=== PATIENT | female | born 1945 | race Caucasian/White ===

== ENCOUNTER → 2016-10-27 | Outpatient (CLI) | payer MEDICARE, BC ==
[~2016-10-27] MED LIST: AMIO200T2 PO; CALC667C10 PO; CEPH-583 PO; CEPH500T PO; CINA90TA PO; CLIN300C86 PO; FOLI0.8T5 PO; GABA-215 PO; GABA-336 PO; LACT1CAP79 PO; LUTE20CA3 PO; MIDO10TA PO; MIRT7.5T11 PO; OMEP20TA24 PO; OXYC-532 PO; OXYC1TAB66 PO; ROPI2TAB6 PO; SERT50TA PO; SULF1TAB42 PO; WARF1TAB6 PO
[2016-10-27 12:50] LABS: BASOPHILS % (AUTO) 0.5 % (0-2); EOSINOPHILS # (AUTO) 0.2 T/MM3 (0-0.5); EOSINOPHILS % (AUTO) 2.6 % (0-4); HCT - HEMATOCRIT 42.7 % (36-46); HGB - HEMOGLOBIN 12.8 GM/DL (12-16); IMMATURE GRANULOCYTE # (AUTO) 0.01 T/MM3 (0.00-0.03); IMMATURE GRANULOCYTE % (AUTO) 0.2 % (0.0-0.5); LYMPHOCYTES # (AUTO) 1.2 T/MM3 (1-4.8); LYMPHOCYTES % (AUTO) 21.3 % (23-45); MEAN CORPUSCULAR VOLUME 86.6 UM3 (80-100); MEAN PLATELET VOLUME 10.1 UM3 (9.4-12.4); MONOCYTES # (AUTO) 0.5 T/MM3 (0-0.8); MONOCYTES % (AUTO) 8.8 % (0-9.0); NEUTROPHILS #(AUTO)-ABSOLUTE 3.8 T/MM3 (1.8-7.7); NEUTROPHILS % (AUTO) 66.6 % (33-66); RED BLOOD COUNT 4.93 M/MM3 (4.00-5.20); WBC - WHITE BLOOD COUNT 5.7 T/MM3 (4.5-11.0)
[2016-10-27 12:57] LABS: ALBUMIN 3.8 G/DL (3.5-5.0); ALBUMIN/GLOBULIN RATIO 1.2 RATIO (1.1-2.2); ALKALINE PHOSPHATASE 215 U/L (38-126); ALT (SGPT) 30 U/L (9-52); ANION GAP 19 MEQ/L (5-15); AST (SGOT) 31 U/L (14-36); BUN/CREATININE RATIO 6 RATIO (6-26); C-REACTIVE PROTEIN 13.6 MG/L (0-9); CALCIUM 8.1 MG/DL (8.4-10.2); CHLORIDE 105 MEQ/L (98-107); CO2 - CARBON DIOXIDE 21 MEQ/L (22-30); CREATININE 5.3 MG/DL (0.7-1.2); GLOMERULAR FILTRATION RATE 8; GLUCOSE 122 MG/DL (65-110); POTASSIUM 4.6 MEQ/L (3.6-5); SODIUM 145 MEQ/L (134-144); TOTAL PROTEIN 6.9 G/DL (6.3-8.2)
== END ==
LOC: LABN 12:42
PROVIDERS: ATTEND Internal Medicine Infectious Disease
DX: M86.671 Other chronic osteomyelitis, right ankle and foot (principal)
CPT/HCPCS: 80053; 85025; 85652; 86140

== ENCOUNTER → 2016-12-08 | Outpatient (CLI) | payer MEDICARE, BC ==
[2016-12-08 07:53] LABS: INR 4.27 (0.77-1.03); PROTHROMBIN TIME 46.3 SEC (9.48-12.52)
== END ==
LOC: LABN.FMC 07:36
PROVIDERS: ATTEND Specialist
DX: I48.91 Unspecified atrial fibrillation (principal)
CPT/HCPCS: 85610